=== PATIENT | female | born 1965 | race Hispanic/Latino ===

== ENCOUNTER 2016-05-20 12:44 | Emergency (ER) | payer MEDICARE ==
[2016-05-20 13:36] VITALS: BP 124/86
--- NOTE | 2016-05-20 14:30 | Emergency Department Report ---
Chief Complaint: Abdominal Pain Stated Complaint: CRAMPING/LT FLANK PAIN Time Seen by Provider: 05/20/16 14:25 - HPI History of Present Illness: 50-year-old email and back cramping 2 days. Patient states it feels like she has an open wound and my bones are aching. Patient admits to nausea she denies vomiting diarrhea vaginal discharge abdominal pain and dysuria. She has a past medical history of CVA TIA left-sided weakness. 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 - Exam Vital Signs: Vital Signs 05/20/16 13:34 Temperature 98.6 F Pulse Rate 85 Respiratory 16 Rate Blood Pressure 124/86 O2 Sat by Pulse 96 Oximetry Physical Exam: Alert and oriented. Left sided tenderness to the upper left back. Cardiovascular S1-S2 regular rate and rhythm respiratory clear to auscultation bilateral MSE screening note: Focused history and physical exam performed. Due to findings the following was ordered: Is seen by this provider MST. We will order a CBC BMP a ED Disposition for MSE Condition: Stable Instructions: Abdominal Pain (ED)
[2016-05-20 15:09] LABS: Hematocrit 46.2 % (30.3-42.9); Hemoglobin 15.5 gm/dl (10.1-14.3); Mean Corpuscular HGB Conc 34 % (30-34); Mean Corpuscular Hemoglobin 32 pg (28-32); Mean Corpuscular Volume 95 fl (79-97); Platelet Count 202 K/mm3 (140-440); Red Blood Count 4.86 M/mm3 (3.65-5.03); Red Cell Distribution Width 13.9 % (13.2-15.2); White Blood Count 9.3 K/mm3 (4.5-11.0)
[2016-05-20 15:32] LABS: Alanine Aminotransferase 9 units/L (7-56); Albumin 4.1 g/dL (3.9-5); Albumin/Globulin Ratio 1.5 %; Alkaline Phosphatase 112 units/L (35-129); Anion Gap 18 mmol/L; Bilirubin,Total 0.3 mg/dL (0.1-1.2); Blood Urea Nitrogen 6 mg/dL (7-17); Carbon Dioxide 24 mmol/L (22-30); Chloride 103.3 mmol/L (98-107); Glucose 94 mg/dL (65-100); Potassium 3.8 mmol/L (3.6-5.0); Sodium 141 mmol/L (137-145); Total Protein 6.9 g/dL (6.3-8.2)
--- NOTE | 2016-05-24 05:33 | ED Elopement Review ---
ED Pt Elopement review - Results review Lab results: Laboratory Tests 05/20/16 05/20/16 14:58 14:58 WBC 9.3 RBC 4.86 Hgb 15.5 H Hct 46.2 H MCV 95 MCH 32 MCHC 34 RDW 13.9 Plt Count 202 Sodium 141 Potassium 3.8 Chloride 103.3 Carbon Dioxide 24 Anion Gap 18 BUN 6 L Creatinine 0.6 L Estimated GFR > 60 BUN/Creatinine Ratio 10.00 Glucose 94 Calcium 9.0 Total Bilirubin 0.3 AST 12 ALT 9 Alkaline Phosphatase 112 Total Protein 6.9 Albumin 4.1 Albumin/Globulin Ratio 1.5 - Call Back decision Pt Call Back Decision: No action required
== END 2016-05-20 23:37 | disposition left against medical advice (07) ==
LOC: ED 12:44
DX: R10.9 Unspecified abdominal pain (principal); Z53.21 Procedure and treatment not carried out due to patient leaving prior to being seen by health care provider
CPT/HCPCS: 36415; 80053; 85027

== ENCOUNTER 2017-12-10 13:17 | Outpatient (CLI) | payer MEDICARE ==
--- NOTE | 2017-12-10 13:56 | XRay Report ---
XRAY CHEST TWO VIEWS: 12/10/17 13:17:00 CLINICAL: Cough. COMPARISON: None available. FINDINGS: Normal heart and pulmonary vasculature. The lungs are normally expanded and clear for a few tiny right basal calcified granulomata.No airspace disease or pleural effusion. Mild exaggerated thoracic kyphosis and moderate degenerative change in the mid thoracic spine. IMPRESSION: No acute cardiopulmonary process.
== END 2017-12-10 13:18 | disposition home or self-care (01) ==
LOC: SPVIMAG 13:17
DX: M47.894 Other spondylosis, thoracic region (principal)
CPT/HCPCS: 71046